=== PATIENT | female | born 1955 | race Caucasian/White ===

== ENCOUNTER 2023-01-22 17:34 | Emergency (ER) | payer MEDICARE, SELFPAY ==
--- OUTSIDE RECORDS SUMMARY | 2023-01-22 17:38 | XMS_ITS | Continuity of Care Document ---
Author Name Unknown Organization [facility] Address [address] [address] [place] [address] Phone Care Team Providers Care Underwriting Service Representative Name Role Phone Steve Quintanilla MD Unavailable Unavailable Medications Medication Instructions Dosage Effective Dates (start - stop) Status Comments NORTRIPTYLINE HCL 10 MG CAP TAKE 1 CAPSULE BY MOUTH EVERYDAY AT BEDTIME 10 MG - Active nortriptyline 10 mg capsule take 1 capsule by oral route every bedtime 10 MG - No Longer Active Procedures Procedure Date New Level 4 Advance Directives Directive Yes / No Effective Date File Name No Information Encounters Encounter Description Practice Location Reason(s) For Visit Diagnoses Date Provider Providers Copied on Encounter [facility], [address] [address], [place], [id number], [place] tel:[phone] [facility] No Information 1 Dwight Wilson. [address] [place] [address], [id number], [place]. tel:[phone] [facility], [address] [address], [place], [place], [id number], [place] tel:[phone] [facility] No Information 1 Dwight Wilson. [address] [place] [address], [id number], [place]. tel:[phone] [facility], [address] [address], [place], [place], [id number], [place] tel:[phone] [facility] Abdominal wall pain 1 Dwight Wilson. [address] [facility], [facility] [address], [place], [place], [id number], [place]. tel:[phone] New Level 4 [facility], [address] [address], [place], [place], [id number], [place] tel:[phone] [facility] GI Symptoms or Concerns (chief complaint) Abdominal wall painCollagenous colitis 1 Dwight Wilson. [address] [facility], [facility] [address], [place], [place], [id number], [place]. tel:[phone] Referring Provider: Bailey HERNANDEZ, [address], [place], [address] . tel:[phone] [facility], [address] [address], [place], [place], [id number], [place] tel:[phone] No Information 1 No Information Referring Provider: Bailey HERNANDEZ, [address], [place], [address] . tel:[phone] Family History Family Member Type Diagnosis Age At Onset No Information Immunizations Vaccine Date Status Comments SARS-COV-2 (COVID-19) vaccin e, mRNA, spike protein, LNP, preservative free, 30 mcg/0.3mL dose administered Note: [facility] bi-direct ional interface ; Source: Other Registry SARS-COV-2 (COVID-19) vaccin e, mRNA, spike protein, LNP, preservative free, 30 mcg/0.3mL dose administered Note: [facility] bi-direct ional interface ; Source: Other Registry zoster vaccine recombinant administered N ote: [facility] bi-directional interface ; Source: Other Registry Afluria Qd administered Note: [facility] bi-directional interface ; Source: Other Registry zoster vaccine recombinant administered N ote: [facility] bi-directional interface ; Source: Other Registry Afluria Qd administered Note: [facility] bi-directional interface ; Source: Other Registry Human rabies vaccine from Chicken fibroblast culture administered Note: [facility] bi -directional interface ; Source: Other Registry Human rabies vaccine from Chicken fibroblast culture administered Note: [facility] bi -directional interface ; Source: Other Registry Human rabies vaccine from Chicken fibroblast culture administered Note: [facility] bi -directional interface ; Source: Other Registry Human rabies vaccine from Chicken fibroblast culture administered Note: [facility] bi -directional interface ; Source: Other Registry tetanus toxoid, reduced diphtheria toxoid, and acellular pertussis vaccine, adsorbed administered Note: [facility] b i-directional interface ; Source: Other Registry rabies immune globulin administered Note: [facility] bi-directional interface ; Source: Other Registry Afluria Qd administered Note: [facility] bi-directional interface ; Source: Other Registry Afluria Qd administered Note: [facility] bi-directional interface ; Source: Other Registry Afluria Qd administered Note: [facility] bi-directional interface ; Source: Other Registry influenza, high dose seasona l, preservative-free administered Note: [facility] bi-direct ional interface ; Source: Other Registry zoster vaccine, live administered Note: [facility] bi-directional interface ; Source: Other Registry tetanus toxoid, reduced diphtheria toxoid, and acellular pertussis vaccine, adsorbed administered Note: [facility] b i-directional interface ; Source: Other Registry Influenza, seasonal, injecta ble, preservative free administered Note: [facility] bi-direct ional interface ; Source: Other Registry Novel [id number], all formulations administered Note: [facility] bi-direct ional interface ; Source: Other Registry Influenza, seasonal, injecta ble, preservative free administered Note: [facility] bi-direct ional interface ; Source: Other Registry Influenza, seasonal, injectable administe red Note: [facility] bi- directional interface ; Source: Other Registry tetanus and diphtheria toxoi ds, adsorbed, preservative free, for adult use (5 Lf of tetanus toxoid and 2 Lf of diphtheria toxoid) administered Note: [facility] bi-direct ional interface ; Source: Other Registry Kennethrix administered Note: [facility] bi-d irectional interface ; Source: Other Registry Kennethrix administered Note: [facility] bi-d irectional interface ; Source: Other Registry Payers Payer name Insurance type Covered green party ID Authoriza tion(s) No Information Social History Type Description Quantity Date Captured Comments Sex Female Smoking Status No Information Chief Complaint And Reason For Visit No Information Reason For Referral Reason For Referral No Information Plan Of Treatment Date Type Action Status Referral Ordered: referred to [facility] Abdominal wall injection 1 Week Appointment date/timeframe: 04/28/2021 ordered Referral Ordered: referred to Pain Medicine Abdominal wall injection 1 Week Appointment date/timeframe: 03/15/2021 ordered History Of Present Illness Encounter Date Complaint History Of Prese nt Illness GI Symptoms or Concerns I had th e pleasure having a new patient virtual consultation with Ms. Janay Byrd due to the COVID-19 pandemic.Ms. Byrd was referred by DAVID Worley for evaluation of abdominal pain as well as microscopic colitis.Janay tells me that she has a right-sided abdominal pain. Interestingly, this pain occurs almost exclusively when she lies on her right side at night in bed. She does not have this pain during the day. She does not have this pain associated with eating or making bowel movements. There is no nausea or vomiting. There has been some intentional weight loss, but no unintentional weight loss. No bleeding. She says she will go to sleep at night on her back and then at some point during the night she will roll onto her right side during her sleep and that she will wake up and that this will trigger some pain that she describes as a pulling or stretching sensation. It goes away when she rolls back onto her back.She has undergone an evaluation in t Functional Status Date Functional Assessmen t No Information Instructions Date Instruction Additional Infor abelino 1. Recommend she obt ain an abdominal wall injection at a Pain Clinic. If this helps her symptoms, then she can choose to continue getting periodic abdominal wall injections or she mentioned to me that simply understanding the problem and knowing that it is not dangerous would be reassuring to her.If there is no improvement with the abdominal wall injection, we could consider an 8-week course of budesonide to see if this helps relieve her symptoms at all or simply just helps her bowel habits and perhaps that will improve her quality of life.Thank you so much for involving me in the care of Ms. Byrd. She will update me whether or not the abdominal wall injections help her. Related to Abdominal wall pain Assessments Type Assessment Date No Information Patient Care Teams Name Effective Dates (start - stop) Status Members No Information
[2023-01-22 17:43] VITALS: PULSE 68; RESP 14; TEMP 37.1; O2SAT 99; BMI 19.8
--- NOTE | 2023-01-22 17:58 | CRLHL7_ITS ---
For Patients: As a result of the Century Cures Act, medical imaging exams and procedure reports are released immediately into your electronic medical record. You may view this report before your referring provider. If you have questions, please contact your health care provider. INDICATION: Right calf pain. TECHNIQUE: Bonner-scale two-dimensional ultrasound without and with compression as well as color-flow and spectral Doppler of the right lower extremity veins. COMPARISON: None. FINDINGS: Normal compressibility of and flow within the right common femoral, superficial femoral, popliteal, posterior tibial, profunda, and greater saphenous veins is demonstrated. No thrombus is identified. The left common femoral vein is clear. IMPRESSION: Negative right lower extremity venous Doppler study. Dictated by Garrison Miner MD @ 01/22/2023 7:23:07 PM (Electronically Signed)
[2023-01-22 18:02] VITALS: BP 151/69
--- OUTSIDE RECORDS SUMMARY | 2023-01-22 18:20 | XMS_ITS | Continuity of Care Document ---
Author Name Unknown Organization [facility] Address [address] [address] [place] [address] Phone Care Team Providers Care Care Specialist Name Role Phone Steve Quintanilla MD Unavailable [...] Diagnoses Date Provider Providers Copied on Encounter [facility], [address] [address], [place], [place], [id number], [place] tel:[phone] [facility] No Information 1 Dwight Wilson. [address] [place] [address], [id number], [place]. tel:[phone] [facility], [address] [address], [place], [place], [id number], [place] tel:[phone] [facility] No Information 1 Dwight Wilson. [address] [place] [address], [id number], [place]. tel:[phone] [facility], [address] [address], [place], [id number], [place] tel:[phone] [facility] Abdominal wall pain 1 Dwight Wilson. [address] [facility], [facility] [address], [place], [place], [id number], [place]. tel:[phone] New Level 4 [facility], [address] [address], [place], [place], [id number], [place] tel:[phone] [facility] GI Symptoms or Concerns (chief complaint) Abdominal wall painCollagenous colitis 1 Dwight Wilson. [address] [facility], [facility] [address], [place], [place], [id number], [place]. tel:[phone] Referring Provider: Bailey HERNANDEZ, [address], [place], [address] . tel:[phone] [facility], [address] [address], [place], [place], [id number], [place] tel:[phone] No Information 1 No Information Referring Provider: Bailey HERNANDEZ, [address], [place], [address] . tel:[phone] Family History Family Member Type Diagnosis Age [...] ional interface ; Source: Other Registry Novel [id number], all formulations administered Note: [facility] bi-direct ional [...]
--- NOTE | 2023-01-22 18:25 | ED.GENADULT ---
HPI - General Adult General Chief complaint: Extremity Pain/Injury, Lower Stated complaint: throbbing pain in r. leg Time Seen by Provider: 01/22/23 17:50 Source: patient Mode of arrival: ambulatory Limitations: no limitations History of Present Illness HPI narrative: PATIENT IS A 67-YEAR-OLD FEMALE COMING IN TODAY WITH MULTIPLE COMPLAINTS. 1. Patient complaining of leg pain. Pain is located on the right calf. Nothing seems to make it better or worse. Pain is been there for approximately 3 days. Pain does not migrate. 2. Wrist pain. She describes it as a burning sensation just proximal to the thumb. She states it has been there for several weeks. She states that she does get injections into that joint for discomfort she, she has not had on for a while. She denies the pain moving or getting worse. 3. She states that there was a spot on her sternum that is uncomfortable. That is been there for many months, she has discussed with her primary care provider several times, she just thought she would mention that today. She denies any fevers or chills, nausea vomiting. She states that she recently was in [place] and then [place], returned home about 1 and half weeks ago. She denies shortness of breath or cough. No chest pain. No difficulty walking secondary to her leg pain. Patient's past medical history is significant for hypertension, migraine headaches, hyperlipidemia, anxiety, depression, insomnia, atypical chest pain, microscopic colitis, paroxysmal SVT. Related Data Home Medications Medication Instructions Recorded Confirmed alendronate 70 mg tablet 70 mg PO 01/22/23 flecainide 50 mg tablet 50 mg PO Q12H 01/22/23 01/22/23 fluorouracil 5 % topical cream applic topical DAILY 01/22/23 fluticasone propionate 50 intranasal 01/22/23 mcg/actuation nasal spray,suspension losartan 25 mg tablet 12.5 mg PO DAILY 01/22/23 01/22/23 metoprolol succinate 25 mg PO 01/22/23 tablet,extended release 24 hr rosuvastatin 20 mg tablet 20 mg PO QPM 01/22/23 01/22/23 rosuvastatin 40 mg tablet 40 mg PO QPM 01/22/23 01/22/23 sertraline 50 mg tablet 50 mg PO DAILY 01/22/23 01/22/23 trazodone 50 mg tablet 75 - 100 mg PO QPM PRN insomnia 01/22/23 01/22/23 triamcinolone acetonide 0.1 % applic topical 01/22/23 topical cream Allergies Allergy/AdvReac Type Severity Reaction Status Date / Time Sulfa (Sulfonamide AdvReac Intermediate edema Verified 01/22/23 18:07 Antibiotics) Review of Systems Status of ROS: Reports: 10 or more systems reviewed and unremarkable except as noted in History and below [facility] Social History Smoking Status: Never smoker Do you use any of these nicotine containing products: None Second hand tobacco smoke exposure: No How often do you have a drink containing alcohol: 2-4 times a month How many standard drinks containing alcohol do you have on a typical day: 1 or 2 How often do you have six or more drinks on one occasion: Never AUDIT-C Alcohol total score: 2 Non-prescribed substance use: denies use service: No Exam Narrative: Exam Narrative: Very thin, well-developed patient in no acute distress. Alert and oriented. Answers questions appropriately. Mood and affect are appropriate. Thoughts are goal oriented and rational. No tangential or magical thinking noted. Patient speaks in full sentences without needing to catch her breath. HEENT: Normocephalic atraumatic. Pupils are equally round reactive to light. Extraocular muscles are intact. Conjunctivae are moist without any icterus noted. Moist mucous membranes. Posterior pharynx is normal. Cardiovascular: Heart is regular rate and rhythm S1 and S2 are present without any murmurs. Normal appearing chest wall. Point of tenderness over the sternum that is reproduced with palpation. Lungs: Clear to auscultation bilaterally no wheezes rhonchi or rales are appreciated. Patient takes deep breaths without any discomfort. Extremities: Bilateral lower extremities are without edema. Normal DP and PT pulses. Right wrist has normal appearance. She has no tenderness to palpation. She has normal range of motion. Normal radial pulse. The right lower extremity has normal appearance, she has a negative Homans sign. She does have mild tenderness to palpation all of the lateral upper calf. There are no skin changes visible. There is no swelling of the leg. Skin: Well perfused without any obvious rashes. Const: Vital Signs, click to edit/add: Vital Signs - 24 hr 01/22/23 17:43 01/22/23 18:02 Temperature 98.8 F Pulse Rate [Pulse Oximeter] 68 Respiratory Rate 14 Blood Pressure [Ri ght Upper Arm] 151/69 H Pulse Oximetry 99 Oxygen Delivery Me thod Room Air Course Course Hospital Course: We discussed that as far as her chest wall discomfort goes, she has discussed this with her primary care and we did not pursue this further today. As far as her wrist discomfort was likely has to do with her arthritis in that joint, again it is right at the location that she gets her injections. I do not see any evidence of infection. We talked about discussing this with her orthopedic doctor as needed. As far as her leg discomfort, we did go ahead and proceed with an ultrasound of the lower extremity. This was negative for DVT. Vital Signs Vital signs: Initial Vital Signs Temperature 98.8 F 01/22/23 17:43 Temperature Source Temporal Artery Scan 01/22/23 17:43 Pulse Rate 68 01/22/23 17:43 Respiratory Rate 14 01/22/23 17:43 Pulse Oximetry 99 01/22/23 17:43 Oxygen Delivery Method Room Air 01/22/23 17:43 Vital Signs Temperature 98.8 F 01/22/23 17:43 Pulse Rate 68 01/22/23 17:43 Respiratory Rate 14 01/22/23 17:43 Pulse Oximetry 99 01/22/23 17:43 Oxygen Delivery Method Room Air 01/22/23 17:43 Temperature 98.8 F 01/22/23 17:43 Pulse Rate 68 01/22/23 17:43 Respiratory Rate 14 01/22/23 17:43 Blood Pressure 151/69 H 01/22/23 18:02 Pulse Oximetry 99 01/22/23 17:43 Oxygen Delivery Method Room Air 01/22/23 17:43 Medical Decision Making [facility] Narrative Medical decision making narrative: 67-year-old female with discomfort of the right calf-we discussed her ultrasound results today and discussed causes of discomfort including muscle cramping, nerve irritation, potential for early shingles. At this time we discussed symptomatic treatment reasons for follow-up. Patient was agreeable with everything we discussed had no other questions. Imaging Data Venous US: Attestation: I have reviewed the pertinent imaging results. Radiologist's impression: Bonner-scale two-dimensional ultrasound without and with compression as well as color-flow and spectral Doppler of the right lower extremity veins. COMPARISON: None. FINDINGS: Normal compressibility of and flow within the right common femoral, superficial femoral, popliteal, posterior tibial, profunda, and greater saphenous veins is demonstrated.? No thrombus is identified.? The left common femoral vein is clear. IMPRESSION: Negative right lower extremity venous Doppler study. Discharge Plan Discharge Clinical Impression: Leg pain Patient Disposition: Home, Self-Care Condition: Stable Additional Instructions: Your ultrasound was negative for a blood clot today. At this time recommend taking Tylenol as needed, using heating pad to the area of discomfort-do not apply heat directly to skin. Follow-up with your primary care as needed. Prescriptions: No Action trazodone 50 mg tablet 75 - 100 mg PO QPM PRN (Reason: insomnia) alendronate 70 mg tablet 70 mg PO fluorouracil 5 % cream topical DAILY triamcinolone acetonide 0.1 % cream topical flecainide 50 mg tablet 50 mg PO Q12H losartan 25 mg tablet 12.5 mg PO DAILY metoprolol succinate 25 mg tablet extended release 24 hr PO fluticasone propionate 50 mcg/actuation spray,suspension INTRANASAL Patient Comments: [NO ORIGINAL SIG] sertraline 50 mg tablet 50 mg PO DAILY rosuvastatin 20 mg tablet 20 mg PO QPM rosuvastatin 40 mg tablet 40 mg PO QPM Follow Up/Referrals: Aditi Malcolm MD [Primary Care Provider] - Stand Alone Forms: My[facility] Info Instructions
== END 2023-01-22 19:38 | disposition home or self-care (01) ==
PROVIDERS: Emergency Provider Family Medicine; PCP Family Medicine
DX: M79.661 Pain in right lower leg (principal)
CPT/HCPCS: 93971; 99283; 99284

== ENCOUNTER 2023-05-16 10:30 | Outpatient (RCR) | payer MEDICARE, SELFPAY | END 2023-07-04 14:33 | disposition home or self-care (01) | PROVIDERS: PCP Family Medicine; Visit Provider Family Medicine | DX: M25.551 Pain in right hip (principal); M25.552 Pain in left hip; Z51.89 Encounter for other specified aftercare | CPT/HCPCS: 97110; 97140; 97161 ==

== ENCOUNTER 2024-08-26 18:05 | Emergency (ER) | payer MEDICARE, SELFPAY ==
[2024-08-26 18:08] VITALS: BP 182/77; PULSE 71; RESP 18; TEMP 36.8; O2SAT 99; BMI 19.8
--- NOTE | 2024-08-26 18:35 | CRLHL7_ITS ---
For Patients: As a result of the Cures Act, medical imaging exams and procedure reports are released immediately into your electronic medical record. You may view this report before your referring provider. If you have questions, please contact your health care provider. INDICATION: Dizziness, high blood pressure, sinus infection COMPARISON: None. TECHNIQUE: CT of the paranasal sinuses without intravenous contrast. FINDINGS: Minimal mucosal thickening in the frontal sinuses. Patent bilateral frontal recess. Minimal mucosal thickening in the ethmoid air cells. The sphenoid sinuses are clear. Patent bilateral sphenoethmoidal recess. Near complete opacification of the right maxillary sinus. Severe mucosal thickening in the left maxillary sinus. The left ostiomeatal unit is patent although mildly narrowed by thickened mucosa. The right ostiomeatal unit is opacified. Slight leftward deviation of the nasal septum posteriorly with a small osseous spur. Mild rightward deviation of the nasal septum anteriorly. Moderate to severe degenerative change of the right temporomandibular joint. Mild degenerative change of the left temporomandibular joint. Trace effusion in the left mastoid. Patent right mastoid. No evident acute displaced fracture. Status post bilateral lens replacement. IMPRESSION: Near-complete opacification of the right maxillary sinus with opacification of the ostiomeatal unit. Severe mucosal thickening in the left maxillary sinus. The left ostiomeatal unit is patent although mildly narrowed by thickened mucosa. Otherwise, minimal paranasal sinus mucosal thickening. Please note that all CT scans at this facility use dose modulation, iterative reconstruction, and/or weight-based dosing when appropriate to reduce radiation dose to as low as reasonably achievable. Dictated by Xavier Salcedo MD @ 08/26/2024 8:15:11 PM (Electronically Signed)
--- NOTE | 2024-08-26 18:36 | ED_ITS ---
HPI - General Adult General Chief complaint: Dizziness/Vertigo Stated complaint: dizzy, high blood pressure Time Seen by Provider: 08/26/24 18:06 History of Present Illness HPI narrative: This 68-year-old female comes in with sinus symptoms. She had an upper respiratory infection about a month ago and then began having sinus pain and congestion. She completed 2 rounds of an antibiotic without any relief. She is currently taken an oral steroid and a nasal steroid and comes in today stating that she is feeling off balance at times and has persistent facial pain and headache. She does not report any fevers or cough or shortness of breath. She has not had sinus symptoms in the past. Related Data Home Medications ?Medication ?Instructions ?Recorded ?Confirmed alendronate 70 mg tablet 70 mg PO 01/22/23 08/11/24 flecainide 50 mg tablet 50 mg PO Q12H 01/22/23 08/26/24 fluticasone propionate 50 intranasal 01/22/23 08/11/24 mcg/actuation nasal spray,suspension losartan 25 mg tablet 12.5 mg PO DAILY 01/22/23 08/26/24 metoprolol succinate 25 mg PO 01/22/23 08/11/24 tablet,extended release 24 hr rosuvastatin 20 mg tablet 20 mg PO QPM 01/22/23 08/26/24 rosuvastatin 40 mg tablet 40 mg PO QPM 01/22/23 08/26/24 sertraline 50 mg tablet 50 mg PO DAILY 01/22/23 08/26/24 trazodone 50 mg tablet 75 - 100 mg PO QPM PRN insomnia 01/22/23 08/26/24 azelastine 137 mcg (0.1 %) nasal intranasal 08/26/24 spray ezetimibe 10 mg tablet 10 mg PO DAILY 08/26/24 08/26/24 methylprednisolone 4 mg tablets in 0 mg PO 08/26/24 a dose pack metronidazole 500 mg tablet 500 mg PO BID 08/26/24 08/26/24 Allergies Allergy/AdvReac Type Severity Reaction Status Date / Time pseudoephedrine (From Allergy Severe Rapid Verified 08/11/24 12:11 Sudafed) Heart Rate diltiazem Allergy Unknown Verified 08/11/24 12:11 mirtazapine Allergy Unknown Verified 08/11/24 12:11 Sulfa (Sulfonamide AdvReac Intermediate edema Verified 08/11/24 12:11 Antibiotics) Review of Systems Status of ROS: Reports: 10 or more systems reviewed and unremarkable except as noted in History and below Narrative: Constitutional: No fevers, no weight gain or loss. Eyes: No discharge. No vision changes. HENT: No sore throat, no ear pain. Sinus congestion and pain. Cardiovascular: No chest pain, no palpitations. Respiratory: No shortness of breath, no wheezes, no cough. Gastrointestinal: No abdominal pain, no vomiting, no diarrhea. Genitourinary: No dysuria, no hematuria. Musculoskeletal: Normal range of motion. Skin: No rashes, no pruritis. Neurological: No dizziness, weakness, sensory change, speech change. Endo/Heme/Allergies: No bruising or bleeding. No polydipsia. Pysch: no suicidality, no anxiety, no insomnia. All other systems reviewed and are negative. [facility] Social History Smoking Status: Never smoker Do you use any of these nicotine containing products: None Second hand tobacco smoke exposure: No How often do you have a drink containing alcohol: 2-4 times a month How many standard drinks containing alcohol do you have on a typical day: 1 or 2 How often do you have six or more drinks on one occasion: Never AUDIT-C Alcohol total score: 2 Non-prescribed substance use: denies use service: No Exam Narrative: Exam Narrative: Constitutional: Well-developed, well-nourished, no acute distress. HEENT: Normocephalic, atraumatic. Neck: Normal range of motion. Nontender. Supple. Heart: Regular. No murmurs. Normal rate. Intact distal pulses. Lungs: Clear to auscultation. No chest discomfort. No wheezes, rhonchi, or rales. Abdomen: Normal bowel sounds. Nontender. No rebound tenderness. Genitalia: Deferred. Back: No midline tenderness. Normal range of motion. Extremities: Normal range of motion. No injury. Skin: Intact. No rash. Warm. No erythema or pallor. Neurologic: No altered sensation. No weakness. Alert and oriented. Psychiatric: No suicidality. No anxiety or depression. No insomnia. Nursing notes and vitals signs are reviewed. Const: Vital Signs, click to edit/add: Vital Signs - 24 hr 08/26/24 18:08 Temperature 98.2 F Pulse Rate [Left P ulse Oximeter] 71 Respiratory Rate 18 Blood Pressure [Ri ght Upper Arm] 182/77 H Pulse Oximetry 99 Oxygen Delivery Me thod Room Air Course Vital Signs Vital signs: Initial Vital Signs Temperature 98.2 F 08/26/24 18:08 Temperature Source Temporal Artery Scan 08/26/24 18:08 Pulse Rate 71 08/26/24 18:08 Pulse Rhythm Regular 08/26/24 18:08 Pulse Strength 3+ Normal 08/26/24 18:08 Respiratory Rate 18 08/26/24 18:08 Blood Pressure 182/77 H 08/26/24 18:08 Blood Pressure Mean 112 H 08/26/24 18:08 Blood Pressure Position Sitting 08/26/24 18:08 Pulse Oximetry 99 08/26/24 18:08 Oxygen Delivery Method Room Air 08/26/24 18:08 Vital Signs Temperature 98.2 F 08/26/24 18:08 Pulse Rate 71 08/26/24 18:08 Respiratory Rate 18 08/26/24 18:08 Blood Pressure 182/77 H 08/26/24 18:08 Pulse Oximetry 99 08/26/24 18:08 Oxygen Delivery Method Room Air 08/26/24 18:08 Temperature 98.2 F 08/26/24 18:08 Pulse Rate 71 08/26/24 18:08 Respiratory Rate 18 08/26/24 18:08 Blood Pressure 182/77 H 08/26/24 18:08 Pulse Oximetry 99 08/26/24 18:08 Oxygen Delivery Method Room Air 08/26/24 18:08 Medical Decision Making MDM Narrative Medical decision making narrative: This patient has 4 weeks of sinus pain and pressure and has completed 2 rounds of antibiotics and now is currently taking oral steroid on day 2 and using a nasal steroid spray. She does not report any fevers but continues to have headaches and at times feels that she is off balance. She does not report lightheadedness or vertigo symptoms. She states that she did feel a little bit better after taking the 1st course of an antibiotic but then worsened so a 2nd round was prescribed. I did order a CT scan of her sinuses and this returns wi th almost complete opacification of her right maxillary sinus and significant mucosal thickening with some fluid in the left maxillary sinus. There are no other complications identified. It is possible that this patient has a virus and antibiotic treatment is not working therefore. It does not appear to be a resistant organism as she has normal vital signs and has not had any fevers. Her symptoms are explained by the sinuses that are not adequately draining. I recommended that she follow-up with ear nose and throat clinic and provided a phone number to arrange that appointment. She can continue her steroid prescriptions. I also provided a prescription for Toradol for extra symptomatic relief. Imaging Data CT- Other: Radiologist's impression: Near-complete opacification of the right maxillary sinus with opacification of the ostiomeatal unit. Severe mucosal thickening in the left maxillary sinus. The left ostiomeatal unit is patent although mildly narrowed by thickened mucosa. Otherwise, minimal paranasal sinus mucosal thickening. Discharge Plan Discharge Clinical Impression: Subacute maxillary sinusitis Additional Instructions: Take medication as needed and indicated. Follow-up with ear nose and throat clinic. Call [phone] to arrange for appointment. Return if worsening. Toradol Prescriptions: No Action metronidazole 500 mg tablet 500 mg PO BID azelastine 137 mcg (0.1 %) spray,non-aerosol INTRANASAL Patient Comments: [NO ORIGINAL SIG] methylprednisolone 4 mg tablets,dose pack 0 mg PO ezetimibe 10 mg tablet 10 mg PO DAILY trazodone 50 mg tablet 75 - 100 mg PO QPM PRN (Reason: insomnia) alendronate 70 mg tablet 70 mg PO flecainide 50 mg tablet 50 mg PO Q12H losartan 25 mg tablet 12.5 mg PO DAILY metoprolol succinate 25 mg tablet extended release 24 hr PO fluticasone propionate 50 mcg/actuation spray,suspension INTRANASAL Patient Comments: [NO ORIGINAL SIG] sertraline 50 mg tablet 50 mg PO DAILY rosuvastatin 20 mg tablet 20 mg PO QPM rosuvastatin 40 mg tablet 40 mg PO QPM Follow Up/Referrals: Aditi Malcolm MD [Primary Care Provider] -
--- OUTSIDE RECORDS SUMMARY | 2024-08-26 19:24 | XMS_ITS | Clinical Summary ---
Author Organization [facility] Address [place], [place] [address] Care Team Providers Care Last Code Striper Name Role Phone Jordon Jane MD Unavailable [phone] Aditi Malcolm MD Primary Care Provider Allergies Active Allergy Reactions Criticality Noted Date Comments Diltiazem Diarrhea 11/20/2017 Mirtazapine *Unknown Pseudoephedrine Tachycardia 12/02/2006 Sulfa (Sulfonamide Antibiotics) Edema 11/21 Medications Medication Sig Dispensed Refills Start Date End Date Status multivitamin capsule Take 1 capsule by mouth once daily. Active aspirin (ECOTRIN) 81 mg enteric coated tablet Take 81 mg by mouth. Active fluorouracil 5% topical (EFUDEX) 5 % cream APPLY ONCE DAILY TO LIP FOR 2 WEEKS , RESUME NEEDED FOR REOCCURRENCES 2 Active ezetimibe (ZETIA) 10 mg tabletIndications: Hyperlipidemia, unspecified hyperlipidemia type TAKE 1 TABLET BY MOUTH EVERY DAY 90 Tablet 3 4 Active alendronate (FOSAMAX) 70 mg tabletIndications: Age related osteoporosis, unspecified pathological fracture presence Take 1 Tablet (70 mg) by mouth once a week in the morning. Take on empty stomach with full glass of water. Do not lie down for 1 hr. 13 Tablet 3 4 Active flecainide (TAMBOCOR) 50 mg tabletIndications: Atrial tachycardia (HC) TAKE 1 TABLET BY MOUTH EVERY 12 HOURS 180 Tablet 3 4 Active metoprolol succinate (TOPROL XL) 25 mg Sustained-Release tabletIndications: Atrial tachycardia (HC) Take 1.5 Tablets (37.5 mg) by mouth once daily. 135 Tablet 3 4 Active losartan (COZAAR) 25 mg tabletIndications: Essential hypertension Take 1 Tablet (25 mg) by mouth once daily. 90 Tablet 3 4 Active rosuvastatin (CRESTOR) 40 mg tabletIndications: Coronary artery disease involving kiowa tribe coronary artery of kiowa tribe heart without angina pectoris Take 1 Tablet (40 mg) by mouth at bedtime. 90 Tablet 3 4 Active sertraline (ZOLOFT) 50 mg tabletIndications: Anxiety state Take 1 Tablet (50 mg) by mouth once daily. 90 Tablet 3 4 Active traZODone (DESYREL) 50 mg tabletIndications: Insomnia, idiopathic TAKE 1 & 1/2 TO 2 TABLETS BY MOUTH AT BEDTIME IF NEEDED FOR SLEEP. 180 Tablet 3 4 Active fluticasone (50 mcg per actuation) nasal solution (FLONASE)Indicatio ns:Seasonal allergic rhinitis due to pollen INSTILL 1 SPRAY INTO BOTH NOSTRILS ONCE DAILY 48 mL 3 4 Active azelastine 137 mcg/actuation (ASTELIN) nasal sprayIndications:A cute non-recurrent maxillary sinusitis Inhale 1 [place] into affected nostril(s) two times daily. 30 mL 4 Active methylPREDNISolone (Medrol, Issac,) 4 mg tabletIndications: Acute non-recurrent maxillary sinusitis Take by mouth as instructed per packaging. 21 Tablet 4 Active neomycin-polymyxin -dexAMETHasone (MAXITROL) ophthalmic ointment Apply 1 Strip to both eyes three times daily. 4 08/18/20 24 Discontinue d(*Patient states no longer taking) estrogens, conjugated (Premarin) 0.625 mg/gram vaginal creamIndications:V aginal atrophy INSERT 1 APPLICATORFUL INTRAVAGINALLY TWICE A WEEK. 30 g 2 4 08/18/20 24 Discontinue d(*Patient states no longer taking) metroNIDAZOLE (FLAGYL) 500 mg tabletIndications: BV (bacterial vaginosis) Take 1 Tablet (500 mg) by mouth two times daily for 7 days. 14 Tablet 4 07/31/20 24 doxycycline 100 mg tabletIndications: Sinusitis, unspecified chronicity, unspecified location Take 1 Tablet (100 mg) by mouth two times daily for 5 days. 10 Tablet 4 08/23/20 24 Active Problems Problem Noted Date Diagnosed Date PFO (patent foramen ovale) 07/13/2021 Age related osteoporosis 07/13/2021 Depression, recurrent 03/29/2021 Coronary artery disease without angina pectoris 06/09/2020 Controlled substance agreement signed 11/04/2018 Overview (11/04/2018): Signed 11/04/2018 for ativan. Plan to wean off or find alternative for sleep. Uses 0.5-1mg daily. Paroxysmal SVT (supraventricular tachycardia) Overview (06/25/2018): Diagnosed 10/2017 Microscopic colitis, unspecified 11/20/2017 Postmenopausal atrophic vaginitis 10/30/2016 History of colon polyps 09/22/2015 Overview (06/22/2020): Colonoscopy 09/2015 collagenous colitis repeat in 5 years Colonoscopy 05/2020 normal, repeat in 5 years Unspecified essential hypertension 12/02/2006 Migraine, unspecified, witho ut mention of intractable migraine without mention of status migrainosus 12/02/2006 Other and unspecified hyperlipidemia 12/02/2006 Anxiety state, unspecified 12/02/2006 Insomnia, unspecified 12/02/2006 Generalized anxiety disorder 12/02/2006 Resolved Problems Problem Noted Date Diagnosed Date Resolved Date Cough 09/09/2012 04/14/2020 Atypical chest pain 04/14/20 20 Encounters Date Type Department Care Team Description 08/26/2024 Nurse Triage [facility] [address] [facility] [address] Aditi Malcolm MD Dizziness 08/24/2024 2:30 PM JR. SYSTEMS ADMINISTRATOR Ancillary Procedure [facility] [address] [place] [address] Arrived 08/24/2024 2:05 PM JR. SYSTEMS ADMINISTRATOR Office Visit [facility] [address] [place] [address] Gayatri Cavazos DO Sinus Problem (Has been using a nedi-pot but still having tooth pain and headaches ) 08/23/2024 Travel 08/18/2024 7:50 AM CDT Office Visit [facility] [address] [place] [address] Rosemary Farley MD Sinus Problem (X 1 week- put on antibiotics - headache, green discharge ) 08/17/2024 Travel 07/24/[address] [address] Aditi Malcolm MD 07/23/2024 Travel 07/22/2024 2:30 PM CDT Ancillary Procedure [address] [address] 07/22/2024 2:00 PM CDT Ancillary Procedure [address] [address] 07/22/2024 Telephone [facility] [address] [place] [address] Aditi Malcolm MD antibiotic request 07/21/2024 Travel 07/09/2024 Orders Only [address] [address] Aditi Malcolm MD <No scans attached> 07/08/2024 1:35 PM CDT Office Visit [address] [address] Aditi Malcolm MD Medicare ANNUAL (subsequent) Visit ( 68 year old/) 07/08/2024 8:00 AM CDT Procedure Only [address] [address] [address] Ac Acupuncture 07/08/2024 Travel 06/19/2024 Refill [facility] [address] [place] [address] Nessa Ndiaye MD Refill Request (Flecainide) 06/10/2024 8:45 AM CDT Ancillary Procedure [facility] [address] [facility] [address] 06/10/2024 8:30 AM CDT Ancillary Procedure [facility] [address] [facility] [address] 06/10/2024 7:55 AM CDT Office Visit [facility] [address] [facility] [address] Aditi Malcolm MD Ear Problem (Tenderness on both ears for 1 month); Joint Pain 06/10/2024 Travel 06/01/2024 8:00 AM CDT Procedure Only [facility] [address] [facility] [address] [address] Ac Acupuncture 06/01/2024 Travel 05/31/2024 Refill [facility] [address] [place] [address] Nessa Ndiaye MD Refill Request (Ezetimibe) 05/31/2024 Refill [place] [address] [place] [address] Aditi Malcolm MD Refill Request (Metoprolol Succinate, Trazodone) from Last 3 Months Immunizations Name Administration Dates Next Due COVID-19 VACCINE SPIKEVAX (M ODERNA 50MCG/0.5ML) 12YO+ PFS 08/01/2023 COVID-19 vaccine (Pfizer-Bio NTech 30mcg/0.3mL) 12YO+ BIVALENT PF, MDV 07/30/2022 COVID-19 vaccine (Pfizer-Bio NTech 30mcg/0.3mL) 12YO+ MORGAN-SUCROSE PF, MDV 03/09/2022 COVID-19 vaccine (Pfizer-Bio NTech 30mcg/0.3mL) PF, MDV 07/17/2021,12/10/2020,11/19/2020 Hepatitis A (Adult) 12/27/2004,11/23/2003 INFLUENZA, IIV3 PF (AGE >= 6 MO) 06/28/2011,04/2010 Influenza, High-dose Inactivated 06/17/2024,03/2014 Influenza, IIV3 (Age >=3 years) 07/16/20 13,07/01/2012,06/28/2011,10/27,09/08/2008 Influenza, IIV4 08/03/2020, 9,07/09/2018,06/26,09/05/2016,09/02/2015 Influenza, Inactivated AIIV4 (Age 65+ Years) Preserv Free 07/26/2023,08/01/2022,06/28/2021 Pneumococcal Conj 20-valent (Prevnar 20) 08/01/2022 Pneumococcal Poly,23-Valent (Pneumovax) 05/22/2021 Rabavert 07/05/2018, 8,06/24/2018,06/2106/28/2018 Td, Preservative Free (age > = 7 Years) 11/16/2005 Tdap 06/21/2018,07/01/2012 Zoster (Shingrix-RZV, recombinant) 07/14/2019, Zoster (Zostavax-ZVL, live) 12/04/2012 Family History Medical History Relation Name Comments Diabetes Brother 1 Hyperlipidemia Brother 1 Hypertension Brother 1 Other Brother 1 in his sle ep at age 63, no autopsy done Hyperlipidemia Brother 2 Hypertension Brother 2 Hyperlipidemia Father Hypertension Father Skin cancer Father Cancer-breast Maternal Aunt Stroke Maternal Grandmother Depression Mother Hypertension Mother Migraines Mother Stroke Mother Arthritis Sister 1 Ulcerative colitis Sister 1 Other Sister 2 Born with encep halitis, lived to age 18 Cancer-ovarian No Family History Relation Name Status Comments Brother 1 Brother 2 Alive Daughter kamryn Alive Father (Age 56) oral cance r Maternal Aunt Maternal Grandfather Maternal Grandmother Mother Paternal Grandfather Paternal Grandmother Sister 1 Alive Sister 2 Son mariana Alive Social History Tobacco Use Types Packs/Day Years Used Date Smoking Tobacco: Never Smokeless Tobacco: Never Tobacco Cessation:Counseling Given: Yes Alcohol Use Standard Drinks/Week Comments Yes 7 (1 standard drink = 0.6 oz pur e alcohol) 2 glasses of wine per night PHQ-2 Answer Date Recorded PHQ-2 TOTAL SCORE 0 07/08/2024 Social Connections Answer Date Recorded Do you often feel lonely or isolated from those around you? 0 05/13/2024 Financial Resource Strain Answer Date R ecorded Difficulty of Paying Living Expenses 3 05/13/2024 Difficulty of Paying Living Expenses Not on file 05/13/2024 Food Insecurity Answer Date Recorded Do you worry your food will run out before you are able to buy more? 1 05/13/2024 Transportation Needs Answer Date Record ed Does lack of transportation keep you from medica l appointments? 1 05/13/2024 Does lack of transportation keep you from work, meetings or getting things that you need? 1 05/13/2024 Housing Stability Answer Date Recorded What is your housing situation today? 1 05/13/2024 Sex and Gender Information Value Date Recorded Sex Assigned at Not on file Gender Identity Not on file Sexual Orientation Not on file Obstetrics History Last Filed Vital Signs Vital Sign Reading Time Taken Comments Blood Pressure 124/78 08/24/2024 2:03 PM JR. SYSTEMS ADMINISTRATOR Pulse 78 08/24/2024 2:03 PM JR. SYSTEMS ADMINISTRATOR Temperature 36.4 ??C (97.5 ??F) 08/18/2024 7:51 AM CD T Respiratory Rate 16 05/09/2023 9:22 AM CDT Oxygen Saturation 99% 08/24/2024 2:03 PM JR. SYSTEMS ADMINISTRATOR Inhaled Oxygen Concentration - - Weight 59.6 kg (131 lb 8 oz) 08/24/2024 2:03 PM JR. SYSTEMS ADMINISTRATOR Height 172 cm (5' 7.72) 07/08/2024 1:45 PM CDT Body Mass Index 20.16 07/08/2024 1:45 PM CDT Plan of Treatment Upcoming Encounters Date Type Department Care Team (Late st Contact Info) Description 02/19/2025 9:00 AM CDT Office Visit [facility] [address] [facility] [address] [place] [address] Kiet Damico, PhD, [address] [facility] [address] [place] [address] Health Maintenance Due Date Last Done Comments Influenza for age 65+ 06/21/2024 06/17/2024 , 07/26/2023, 08/01/2022, Additional history exists Colonoscopy through age 75 06/21/202506/21, 06/21/2020, 06/21/2020, Additional history exists BMI (ht and wt on same day) for age 18+ 07/08/2025 07/08/2024, 03/24/2024, 11/25/2023, Additional history exists Depression screening for age 12+ 07/09/2025 07/09/2024, 07/08/2024, 08/02/2022, Additional history exists Medicare Wellness for age 65+ 07/09/2025, 08/01/2022, 07/13/2021 Mammogram for age 45-75 07/22/2025 07/22/20, 07/10/2023, 07/03/2022, Additional history exists Tetanus booster 06/21/2028 06/21/2018, 06/21, 11/16/2005 Lipids for age 45-75 03/24/2029 03/24/2024, 05/24/2023, 02/21/2023, Additional history exists Tdap Completed 06/21/2018, 07/01/2012 Zoster (shingles) series for age 50+ Completed 07/14/2019, 05/08/2019, 12/04/2012 Hepatitis C screening for ag e 18-79 Completed 11/24/2019 DEXA/DXA scan for age 65+ Completed 2019, 12/04/2012, 12/02/2007 Pneumococcal series for age 65+ Completed , 05/22/2021 COVID-19 vaccine series Completed 06/17/20 24, 08/01/2023, 07/30/2022, Additional history exists Procedures Procedure Name Priority Date/Time Associated Diagnosis Comments XR CHEST 2 VIEWS PA AND LATERAL SCOTT 08/24/2024 2:32 PM JR. SYSTEMS ADMINISTRATOR SOB (shortness of breath) TRICHOMONAS, DELROIS, AND BACTERIAL VAGINOSIS BY MARTIN Routine 07/23/2024 10:33 AM CDT BV (bacterial vaginosis) US BREAST UNILATERAL LEFT LIMITED SCOTT 07/22/2024 2:22 PM CDT Breast pain, left XR MAMMO SANDRA BILAT DIAG Routine 07/22/2024 2:13 PM CDT Breast pain, left TRICHOMONAS, DELORIS, AND BACTERIAL VAGINOSIS BY MARTIN Routine 07/08/2024 4:59 PM CDT Vaginal discharge ACUPUNCTURE PLAN OF CARE Routine 07/08/2024 7:52 AM CDT Other low back pain XR ANKLE 3 VIEWS RIGHT Routine 06/10/2024 8:50 AM CDT Chronic pain of right ankle XR SHOULDER 3 VIEWS LEFT Routine 06/10/2024 8:50 AM CDT Chronic left shoulder pain SEDIMENTATION RATE Add On 06/10/2024 8: 39 AM CDT Right sided temporal headache CBC WITH AUTO DIFFERENTIAL Routine 06/10/2024 8:39 AM CDT Memory change CBC WITH AUTO DIFFERENTIAL Routine 06/10/2024 8:39 AM CDT Memory change TSH WITH REFLEX Routine 06/10/2024 8:39 AM CDT Microscopic colitis, unspecified microscopic colitis type Memory change FERRITIN Routine 06/10/2024 8:39 AM CDT Microscopic colitis, unspecified microscopic colitis type Memory change COMP METABOLIC PANEL Routine 06/10/2024 8:39 AM CDT HTN (hypertension) Hyponatremia Memory change VITAMIN B12 Routine 06/10/2024 8:39 AM CDT Microscopic colitis, unspecified microscopic colitis type Memory change ACUPUNCTURE PLAN OF CARE Routine 06/01/2024 8:01 AM CDT Other low back pain LIPID PANEL Routine 03/24/2024 10:55 AM CDT Hyperlipidemia, unspecified hyperlipidemia type COLONOSCOPY SCREENING Routine 06/21/2020 11:12 AM CDT History of colon polyps XR DXA BONE DENSITY 2 SITES AXIAL Routine 06/13/2020 10:05 AM CDT Compression fracture of T8 vertebra, initial encounter (HC) ANTI HCV Routine 11/24/2019 2:19 PM JR. SYSTEMS ADMINISTRATOR Encounter for hepatitis C screening test for low risk patient from Last 3 Months or Most Recently Relevant to Health Maintenance Results * XR CHEST 2 VIEWS PA AND LATERAL (08/24/2024 2:32 PM JR. SYSTEMS ADMINISTRATOR) Anatomical Region Laterality Modality CHEST, THORAX, Lung, HEART Compu osmel Radiography 08/24/2024 3:36 PM JR. SYSTEMS ADMINISTRATOR Impressions 08/24/2024 3:36 PM JR. SYSTEMS ADMINISTRATOR Mild hyperinflation. Attenuation of the pulmonary vascularity. No significant change. Dictated by Estuardo Gonzalez MD @ 08/24/2024 3:36:41 PM (Electronically Signed) Narrative 08/24/2024 3:36 PM JR. SYSTEMS ADMINISTRATOR For Patients: ??As a result of the Cures Act, medical imaging exams and procedure reports are released immediately into your electronic medical record. ??You may view this report before your referring provider. ??If you have questions, please contact your health care provider. INDICATION: Shortness of breath. TECHNIQUE: PA and lateral chest x-ray. COMPARISON: March 29, 2021. FINDINGS: Again noted is hyperinflation with attenuation of the pulmonary vascularity. Widened AP diameter. Normal heart size. No pneumothorax. No focal or diffuse infiltrate. There is anterior wedging of approximately T8, seen in retrospect and therefore not acute. Mild degenerative disc disease of the upper lumbar spine. Procedure Note Estuardo Gonzalez MD - 08/24/2024 For Patients: As a result of the s Act, medical imagingexams and procedure reports are released immediately into your electronicmedical record. You may view this report before your referring provider.If you have questions, please contact your health care provider. INDICATION: Shortness of breath. TECHNIQUE: PA and lateral chest x-ray. COMPARISON: March 29, 2021. FINDINGS: Again noted is hyperinflation with attenuation of the pulmonaryvascularity. Widened AP diameter. Normal heart size. No pneumothorax. Nofocal or diffuse infiltrate. There is anterior wedging of approximatelyT8, seen in retrospect and therefore not acute. Mild degenerative discdisease of the upper lumbar spine. IMPRESSION: Mild hyperinflation. Attenuation of the pulmonary vascularity. Nosignificant change. Dictated by Estuardo Gonzalez MD @ 08/24/2024 3:36:41 PM (Electronically Signed) Darlenei Hazaheer DO GENERAL IMAGING * (ABNORMAL) TRICHOMONAS, DELORIS, AND BACTERIAL VAGINOSIS BY MARTIN (07/23/2024 10:33 AM CDT) Only the most recent of2 resultswithin the time period is included. SURESWAB(R) ADV BACTERIAL VAGINOSIS (BV), TMA POSITIVE(A) NEGATIVE [facility] DELORIS SPECIES NOT DETECTED NOT DETECTED [facility] DELORIS GLABRATA NOT DETECTED NOT DETECTED [facility] Comment: Deloris species C. albicans, C. tropicalis, C. parapsilosis, and/or C. dubliniensis can be detected, but not differentiated, in the Deloris spp. result. TRICHOMONAS VAGINALIS (TV), TMA NOT DETECTED NOT DETECTED [facility] Other VAGINAL SWAB / Unknown 07/23/2024 10:33 AM CDT 07/23/2024 10:33 AM CDT Aditi Malcolm MD [facility]OLOGY [facility] [address] [place] [address], [facility] [address] [place] [address] * BREAST UNILATERAL LEFT LIMITED (07/22/2024 2:22 PM CDT) Anatomical Region Laterality Modality BREASTS, Breast Left, Breast Right Left Ultrasound Narrative 07/22/2024 3:55 PM CDT As a result of the Cures Act, medical imaging exams and procedure reports are released immediately into your electronic medical record. ??You may view this report before your referring provider. ??If you have questions, please contact your health care provider. LEFT BREAST ULTRASOUND 07/22/2024 PLEASE SEE [id number] FOR BILATERAL DIGITAL DIAGNOSTIC MAMMOGRAM OF SAME DAY. Aditi Malcolm MD US * XR MAMMO SANDRA BILAT DIAG (07/22/2024 2:13 PM CDT) Anatomical Region Laterality Modality BREASTS, Breast Left, Breast Right Bilateral Mammography 07/22/2024 2:41 PM CDT Impressions 07/22/2024 3:55 PM CDT No evidence of malignancy. RECOMMENDATIONS: Annual BILATERAL screening mammography. BI-RADS Category 2: Benign ?? Dictated by: David Hamilton MD @07/22/2024 2:41:16 PM /sp PATIENTS: You will also receive a letter with your examination results in an easy to read format. ??If you have questions about your results, please contact your referring provider. Narrative 07/22/2024 3:55 PM CDT As a result of the Century Cures Act, medical imaging exams and procedure reports are released immediately into your electronic medical record. ??You may view this report before your referring provider. ??If you have questions, please contact your health care provider. BILATERAL BREAST MAMMOGRAM DIGITAL DIAGNOSTIC WITH COMPUTER-AIDED DETECTION AND TOMOSYNTHESIS 07/22/2024 ?? LEFT BREAST ULTRASOUND 07/22/2024 CLINICAL HISTORY: LEFT breast pain. COMPARISON: 07/10/2023, 07/03/2022, 06/28/2021. TECHNIQUE: Digital BILATERAL mammogram in four projections with computer-aided detection. Tomosynthesis was used in this interpretation. Real-time ultrasound imaging of LEFT breast with imaging documentation. BREAST COMPOSITION: There are scattered areas of fibroglandular density. FINDINGS: 3D CC/MLO BILATERAL mammogram images submitted. No suspicious masses or architectural distortion. No suspicious calcifications. No adenopathy. Targeted LEFT breast ultrasound performed in the area of concern at 9 o'clock 5 cm from the nipple. Normal fibroglandular tissue is present. No suspicious findings. Aditi Malcolm MD MAMMO * XR ANKLE 3 VIEWS RIGHT (06/10/2024 8:50 AM CDT) Anatomical Region Laterality Modality ANKLES, ANKLE R Computed Radiogr aphy 06/10/2024 2:08 PM CDT Narrative 06/10/2024 2:08 PM CDT For Patients: ??As a result of the Cures Act, medical imaging exams and procedure reports are released immediately into your electronic medical record. ??You may view this report before your referring provider. ??If you have questions, please contact your health care provider. Indication: Right ankle pain Technique: Right ankle 3 views Comparison: None Findings: Plantar calcaneal spur. No fracture. No joint effusion. Subchondral degenerative cystic change in the medial talar dome. Impression: Mild degenerative joint disease and small plantar calcaneal spur. Dictated by David Hamilton MD @ 06/10/2024 2:08:56 PM (Electronically Signed) Procedure Note David Hamilton MD - 06/10/2024 For Patients: As a result of the s , medical imagingexams and procedure reports are released immediately into your electronicmedical record. You may view this report before your referring provider.If you have questions, please contact your health care provider. Indication: Right ankle pain Technique: Right ankle 3 views Comparison: None Findings: Plantar calcaneal spur. No fracture. No joint effusion. Subchondraldegenerative cystic change in the medial talar dome. Impression: Mild degenerative joint disease and small plantar calcaneal spur. Dictated by David Hamilton MD @ 06/10/2024 2:08:56 PM (Electronically Signed) Aditi Malcolm MD GENERAL IMAGING * XR SHOULDER 3 VIEWS LEFT (06/10/2024 8:50 AM CDT) Anatomical Region Laterality Modality SHOULDERS, SHOULDER L Computed R adiography 06/10/2024 3:14 PM CDT Narrative 06/10/2024 3:14 PM CDT For Patients: ??As a result of the s , medical imaging exams and procedure reports are released immediately into your electronic medical record. ??You may view this report before your referring provider. ??If you have questions, please contact your health care provider. Indication: Left shoulder pain. Technique: Left shoulder 3 views. Comparison: None. Findings: Osteopenia. Mild narrowing and spurring at the acromioclavicular joint with subchondral cystic change. No fracture. Impression: Acromioclavicular degenerative joint disease. Dictated by David Hamilton MD @ Jun 10 2024 ??3:14PM (Electronically Signed) www.? Procedure Note David Hamilton MD - 06/10/2024 For Patients: As a result of the Cures Act, medical imagingexams and procedure reports are released immediately into your electronicmedical record. You may view this report before your referring provider.If you have questions, please contact your health care provider. Indication: Left shoulder pain. Technique: Left shoulder 3 views. Comparison: None. Findings: Osteopenia. Mild narrowing and spurring at the acromioclavicular jointwith subchondral cystic change. No fracture. Impression: Acromioclavicular degenerative joint disease. Dictated by David Hamilton MD @ Jun 10 2024 3:14PM (Electronically Signed) www.? Aditi Malcolm MD GENERAL IMAGING * SEDIMENTATION RATE (06/10/2024 8:39 AM CDT) SEDIMENTATION RATE 7 <30 mm/hr 2023 4:15 PM CDT [facility] Blood BLOOD SPECIMEN / Unknown Venipuncture / Unknown 06/10/2024 8:39 AM CDT 06/10/2024 8:40 AM CDT Aditi Malcolm MD HEMATOLOGY [facility] [employer] [facility] [address] [place] [address], * (ABNORMAL) CBC WITH AUTO DIFFERENTIAL (06/10/2024 8:39 AM CDT) WHITE BLOOD COUNT 6.3 4.5 - 11.0 thou/cu mm 06/10/2024 8:43 AM CDT [facility] RED BLOOD COUNT 3.96(L) 4.00 - 5.20 mil/cu mm 06/10/2024 8:43 AM CDT [facility] HEMOGLOBIN 12.6 12.0 - 16.0 g/dL 06/10/2024 8:43 AM CDT [facility] HEMATOCRIT 36.6 33.0 - 51.0 % 06/10/2024 8:43 AM CDT [facility] MCV 92 80 - 100 fL 06/10/2024 8:43 AM CDT [facility] MCH 31.8 26.0 - 34.0 pg 06/10/2024 8:43 AM CDT [facility] MCHC 34.4 32.0 - 36.0 g/dL 06/10/2024 8:43 AM CDT [facility] RDW 12.4 11.5 - 15.5 % 06/10/2024 8:43 AM CDT [facility] [facility] PLATELET COUNT 301 140 - 440 thou/cu mm 06/10/2024 8:43 AM CDT [facility] MPV 8.5 6.5 - 11.0 fL 06/10/2024 8:43 AM CDT [facility] % NEUT 59.7 % 06/10/2024 8:43 AM CDT [facility] % LYMPH 28.4 % 06/10/2024 8:43 AM CDT [facility] % MONO 8.1 % 06/10/2024 8:43 AM CDT [facility] % EOS 3.5 % 06/10/2024 8:43 AM CDT [facility] % BASO 0.3 % 06/10/2024 8:43 AM CDT [facility] ABSOLUTE NEUTROPHILS 3.8 1.7 - 7.0 thou/cu mm 06/10/2024 8:43 AM CDT [facility] ABSOLUTE LYMPHOCYTES 1.8 0.9 - 2.9 thou/cu mm 06/10/2024 8:43 AM CDT [facility] ABSOLUTE MONOCYTES 0.5 <0.9 thou/cu mm 06/10/2024 8:43 AM CDT [facility] ABSOLUTE EOSINOPHILS 0.2 <0.5 thou/cu mm 06/10/2024 8:43 AM CDT [facility] ABSOLUTE BASOPHILS 0.0 <0.3 thou/cu mm 06/10/2024 8:43 AM CDT [facility] Blood BLOOD SPECIMEN / Unknown Venipuncture / Unknown 06/10/2024 8:39 AM CDT 06/10/2024 8:40 AM CDT Aditi Malcolm MD HEMATOLOGY [facility] [address] [place] [address], * TSH WITH REFLEX (06/10/2024 8:39 AM CDT) TSH 1.62 0.27 - 4.20 uIU/mL 06/10/2024 7:44 PM CDT [facility] Blood BLOOD SPECIMEN / Unknown Venipuncture / Unknown 06/10/2024 8:39 AM CDT 06/10/2024 8:40 AM CDT Narrative [facility] - 06/10/2024 7:44 PM CDT In Adults, TSH values between 5.00 and 10.00 uIU/ml do not necessarily indicate the presence of Hypothyroidism. Correlation with clinical findings such as presence of goiter and/or Thyroperoxidase (TPO) Antibody may be helpful. For more information please refer to FRANK 2004; 291: 228-238. Aditi Malcolm MD CHEMISTRY [facility] [address] [place] [address], * FERRITIN (06/10/2024 8:39 AM CDT) FERRITIN 70.6 15.0 - 150.0 ng/mL 06/10/2024 7:44 PM CDT [facility] Blood BLOOD SPECIMEN / Unknown Venipuncture / Unknown 06/10/2024 8:39 AM CDT 06/10/2024 8:40 AM CDT Aditi Malcolm MD CHEMISTRY Performing Organization Address [facility]/ZIP Co de Phone Number [facility] [address] [place] [address], * VITAMIN B12 (06/10/2024 8:39 AM CDT) Pathologist [facility] VITAMIN B12 625 232 - 1,245 pg/mL 06/10/2024 7:44 PM CDT [facility] Blood BLOOD SPECIMEN / Unknown Venipuncture / Unknown 06/10/2024 8:39 AM CDT 06/10/2024 8:40 AM CDT Narrative [facility] - 06/10/2024 7:44 PM CDT Biotin supplements may cause clinically significant interference for this test assay. ??If interference is suspected, it is strongly recommended that biotin is discontinued for at least one week prior to retesting. Aditi Malcolm MD CHEMISTRY Performing Organization Address [facility] Co de Phone Number [facility] [address] * (ABNORMAL) COMP METABOLIC PANEL (06/10/2024 8:39 AM CDT) SODIUM 134(L) 136 - 145 mmol/L 06/10/2024 7:44 PM CDT [facility] POTASSIUM 4.8 3.5 - 5.1 mmol/L 06/10/2024 7:44 PM CDT [facility] CHLORIDE 99 98 - 107 mmol/L 06/10/2024 7:44 PM CDT [facility] CO2,TOTAL 26 22 - 29 mmol/L 06/10/2024 7:44 PM CDT [facility] ANION GAP 9 5 - 18 06/10/2024 7:44 PM CDT [facility] GLUCOSE 87 70 - 99 mg/dL 06/10/2024 7:44 PM T [facility] CALCIUM 9.2 8.8 - 10.2 mg/dL 06/10/2024 7:44 PM T [facility] BUN 10 8 - 23 mg/dL 06/10/2024 7:44 PM [facility] CREATININE 0.71 0.50 - 0.90 mg/dL 06/10/2024 7:44 PM [facility] BUN/CREAT RATIO 14 10 - 20 7:44 PM [facility] eGFR >90 >90 mL/min/1.7 3m2 06/10/2024 7:44 PM [facility] Comment:As of 2022, eG FR is calculated by the CKD-EPI creatinine equation without race adjustment. ??eGFR can be influenced by muscle mass, exercise, and diet. ??The reported eGFR is an estimation only and is only applicable if the renal function is stable. ALBUMIN 4.5 4.0 - 4.9 g/dL 06/10/2024 7:44 PM T [facility] PROTEIN,TOTAL 6.8 6.0 - 8.0 g/dL 06/10/2024 7:44 PM [facility] BILIRUBIN,TOTAL 0.6 0.0 - 1.2 mg/dL 06/10/2024 7:44 PM [facility] ALK PHOSPHATASE 42 35 - 104 IU/L 06/10/2024 7:44 PM [facility] ALT (SGPT) 29 10 - 35 IU/L 06/10/2024 7:44 PM T [facility] AST (SGOT) 36(H) 10 - 35 IU/L 06/10/2024 7:44 PM [facility] Blood BLOOD SPECIMEN / Unknown Venipuncture / Unknown 06/10/2024 8:39 AM CDT 06/10/2024 8:40 AM CDT Aditi Malcolm MD CHEMISTRY Performing Organization Address City/[facility]/ZIP Co de Phone Number [facility] [address] [place] [address], * LIPID PANEL (03/24/2024 10:55 AM CDT) CHOLESTEROL,TOTAL 179 100 - 199 mg/dL 03/24/2024 4:50 PM CDT [facility] Comment: Cholesterol, Total Reference Ranges Desirable <200 mg/dL Borderline 200-239 mg/dL High >=240 mg/dL TRIGLYCERIDES 119 <150 mg/dL 03/24/2024 4:50 PM CDT [facility] HDL CHOLESTEROL 83 >40 mg/dL 4:50 PM CDT [facility] NON-HDL CHOLESTEROL 96 <145 mg/dl 03/24/2024 4:50 PM CDT [facility] CHOL/HDL RATIO 2.16 <4.50 03/24/2024 4:50 PM CDT [facility] LDL CHOLESTEROL 72 <=130 mg/dL 03/24/2024 4:50 PM CDT [facility] VLDL CHOLESTEROL 24 <=30 mg/dL 03/24/2024 4:50 PM CDT [facility] PROVIDER ORDERED STATUS RANDOM 03/24/2024 4:50 PM CDT [facility] Blood BLOOD SPECIMEN / Unknown Venipuncture / Unknown 03/24/2024 10:55 AM CDT 03/24/2024 10:57 AM CDT Kelsi Yung NP CHEMISTRY [facility] [address] [place] [address], * COLONOSCOPY SCREENING (06/21/2020 11:12 AM CDT) Aditi Malcolm MD GI PROCEDURE ORD * (ABNORMAL) XR DXA BONE DENSITY 2 SITES AXIAL [55926.1] (06/13/2020 10:05 AM CDT) Anatomical Region Laterality Modality Spine, HIPS, HIPL, HIPR Other Narrative 06/30/2020 11:40 AM CDT Please see scanned document for results of this study. Aditi Malcolm MD DEXA * ANTI HCV (11/24/2019 2:19 PM JR. SYSTEMS ADMINISTRATOR) HEPATITIS C ANTIBODY Non-React dale Non-React dale 11/25/2019 2:51 AM JR. SYSTEMS ADMINISTRATOR [facility] Comment:Antibodies to HCV no t detected; does not exclude the possibility of exposure to HCV. Blood BLOOD SPECIMEN / Unknown Venipuncture / Unknown 11/24/2019 2:19 PM JR. SYSTEMS ADMINISTRATOR 11/24/2019 2:19 PM JR. SYSTEMS ADMINISTRATOR Aditi Malcolm MD SEND OUTS [facility] [address] [place] [address], from Last 3 Months or Most Recently Relevant to Health Maintenance Advance Directives * Full Code (Latest Code Status on File) Date Activated Date Inactivated Comments 12/19/2009 9:00 AM 12/19/2009 11:16 PM Care Teams Last Code Striper Relationship Specialty Start Date End Date Aditi Malcolm MD [address] [place] [address] PCP - General Family Practice 11/04/18 Jordon Jane MD [address] [facility] [address] [place] [address] Rheumatology Rheumatology 06/27/17
[2024-08-26 20:53] VITALS: BP 165/71; PULSE 68; RESP 18; TEMP 36.8; O2SAT 99
[2024-08-26 20:54] VITALS: BP 165/71; PULSE 68; RESP 18; TEMP 36.8
== END 2024-08-26 20:55 | disposition home or self-care (01) ==
LOC: ED 19:22
PROVIDERS: Emergency Provider Emergency Medicine Emergency Medical Services; PCP Family Medicine
DX: J01.00 Acute maxillary sinusitis, unspecified (principal)
CPT/HCPCS: 70486; 99283; 99284

== ENCOUNTER 2024-11-10 09:45 | Outpatient (RCR) | payer MEDICARE, SELFPAY ==
--- OUTSIDE RECORDS SUMMARY | 2024-10-09 07:31 | XMS_ITS | Continuity of Care Document ---
Author Organization [place] - [facility] Address [address] [place] [address] Assessment Encounter Date Assessment Date Assessment LastModified by Organization Details LastModified Time 09/29/2024 09/29/2024 ASSESSMENT: Patient is a good candidate for conservative care and the prognosis is for a favorable outcome that achieves the patients' goals. We discussed etiology, activity modifications, home care, and other treatment options. Initially, it is recommended that the patient receive in-office treatment 1 times per week for 8 weeks at which time a re-evaluation will be performed to determine an appropriate change in plan. Initially, treatment will focus on joint manipulation to restore range of motion and reduce pain. We will slowly progress to therapeutic exercises and activities to improve function, strength, and stability may also be used as warranted. If the patient is not responding as expected, more invasive procedures will be discussed along with a referral. All considerations above were discussed with the patient and questions answered to satisfaction. If the patient should have any additional questions, or should the condition evolve or worsen, the patient should not hesitate to contact our office. [email or web address] Not available 09/29/2024 16:20:32 Plan of Treatment Reminders Order Date Submit Date Provider Last Modified By Organization Details Last Modified Time Details Appointments None record ed. Lab None record ed. Referral None record ed. Procedures None record ed. Surgeries None record ed. Imaging None record ed. Medication Orders None record ed. Patient TargetsNo targets recorded. Patient InstructionsNo instructions recorded. Reason for Referral None Reported. Problems Name Problem SNOMED Code Status Onset Date Resolution Date Notes Provider Name and Address Organization Details Recorded Time Thoracic segmental dysfunction 399414243 Active 2023 Jesse Harris [place] [address], [place], [address], [facility] 4 16:20:33 Low back pain 926967312 Active 2023 Jesse Harris[place], [place] [address], [facility] [place], [address], [facility] 4 16:20:33 Somatic dysfunction of sacral spine 077743924 Active 2023 Jesse Harris [place] [address], [place], [address], [facility] 4 16:20:33 Lumbar segmental dysfunction 322185663 Active 2023 Jesse HarrisINDEPEND[place], [place] [address], [place], [address], [facility] 4 16:20:33 Problem Notes None recorded. Procedures Surgical History Date Name Laterality Status Provider Name and Address Organization Details Recorded Time 38420: Spinal manipulation , 3 to 4 regions completed [facility] Dragan StevenIN[place]END[place], [place] [address], [place], [address], [facility] 09/29/2024 16:20:56 Imaging Results None recorded. Procedure Notes None recorded. Medical Equipment None Reported. Vitals None Recorded Social History None recorded. Functional Status None recorded. Mental Status None recorded. Family History Nothing Reported. Medical History No medical history recorded. Gynecological HistoryNo gynecological history recorded. Obstetrics History GPAL:G 0 P 0 0 0 0 Past Encounters Encounter ID Performer Location Encounter Start Date Encounter Closed Date Diagnosis/Indication Diagnosis SNOMED-CT Code Diagnosis ICD10 Code [id number] [facility] Dragan Harris [facility] [address] [place] [address] 09/29/2024 10:38:40 09/29/2024 17:10:28 Lumbar segmental dysfunction 492058646 M99.03 Low back pain 278278143 M54.50 Somatic dy sfunction of sacral spine 279529214 M99.04 Thoracic s egmental dysfunction 600855928 M99.02 Health Concerns Section Related Observation LastModified by Organization Detai ls LastModified Time None Recorded Concern Status LastModified by Organization Details LastModified Time None Recorded Payers Encounter Date Sequence Insurance Name Policy Number Policy Galvan Covered Member ID Galvan Member ID Guarantor Name 09/29/2024 1 [employer] (MEDICARE REPLACEMENT PPO) [id number] 1 Janay Byrd [id number] Janay Byrd Notes Date Note Type Note Provider Name and Address Organization Details Recorded Time 09/29/2024 text/html HPI - Lumbar SpineReported bypatient.Location: bilateral; With radiation to knee Quality:aching Severity:not changing Timing:morning Aggravating Factors:standing Alleviating Factors:ice Scot Dragan Harris [place] [address], [place], [address], [facility] 09/29/2024 16:21:15 OBGyn Episode No OBEpisode recorded.
--- OUTSIDE RECORDS SUMMARY | 2024-10-09 07:31 | XMS_ITS | Data Portability ---
Author Organization [place] - [facility], [facility] Address [address] [facility] [address] [place] [address] Assessment Encounter Date Assessment Date Assessment LastModified [...] Organization Details Recorded Time Thoracic segmental dysfunction 002087359 Active 2023 Jesse Harris [place] [address], [place], [address], [facility] 4 16:20:33 Low back pain 943777027 Active 2023 Jesse Harris [place] [address], [place], [address], [facility] 4 16:20:33 Somatic dysfunction of sacral spine 686408051 Active 2023 Jesse Harris [place] [address], [place], [address], [facility] 4 16:20:33 Lumbar segmental dysfunction 996731338 Active 2023 Jesse Harris [place] [address], [place], [address], [facility] 4 16:20:33 Problem Notes None recorded. Procedures Surgical History Date Name Laterality Status Provider Name and Address Organization Details Recorded Time 4 [address]: Spinal manipulation , 3 to 4 regions completed [facility] Dragan Harris [place] [address], [place], [address], [facility] 09/29/2024 16:20:56 Imaging Results None recorded. Procedure [...] Diagnosis/Indication Diagnosis SNOMED-CT Code Diagnosis ICD10 Code [id number] [facility] Dragan Harris [facility] [address] [place] [address] 09/29/2024 10:38:40 09/29/2024 17:10:28 Lumbar segmental dysfunction 400907614 M99.03 Low back pain 954713550 M54.50 Somatic dy sfunction of sacral spine 866294360 M99.04 Thoracic s egmental dysfunction 191169289 M99.02 Health Concerns Section Related Observation LastModified by Organization Detai ls LastModified Time None Recorded Concern Status LastModified by Organization Details LastModified Time None Recorded Advance Directives Directive None Recorded Payers Encounter Date Sequence Insurance Name Policy Number Policy Galvan Covered Member ID Galvan Member ID Guarantor Name 09/29/2024 1 [employer] (MEDICARE REPLACEMENT PPO) [id number] 1 Janay Byrd [id number] Janay Byrd Notes Date Note Type Note Provider Name and Address Organization Details Recorded Time 09/29/2024 text/html HPI - Lumbar SpineReported bypatient.Location: bilateral; With radiation to knee Quality:aching Severity:not changing Timing:morning Aggravating Factors:standing Alleviating Factors:ice Scot Dragan Harris [place] [address], [place], [address], [facility] 09/29/2024 16:21:15 OBGyn Episode No OBEpisode recorded.
== END 2024-11-10 12:39 | disposition home or self-care (01) ==
PROVIDERS: PCP Family Medicine; Visit Provider Family Medicine
DX: M25.512 Pain in left shoulder (principal); M25.571 Pain in right ankle and joints of right foot; M25.551 Pain in right hip; M25.552 Pain in left hip; M25.562 Pain in left knee; G89.29 Other chronic pain; Z51.89 Encounter for other specified aftercare
CPT/HCPCS: 97110; 97161

== ENCOUNTER 2025-05-25 07:30 | Outpatient (RCR) | payer MEDICARE, SELFPAY | END 2025-09-03 08:41 | disposition home or self-care (01) | PROVIDERS: PCP Family Medicine; Visit Provider Family Medicine | DX: M25.561 Pain in right knee (principal); M22.2X1 Patellofemoral disorders, right knee; Z51.89 Encounter for other specified aftercare | CPT/HCPCS: 97110; 97161; 97530 ==